=== PATIENT | female | born 1990 ===

== ENCOUNTER 2021-10-11 19:15 | Outpatient (CLI) | payer OTHER | END 2021-10-11 23:20 | disposition still patient (30) | LOC: TRG 19:15 → APU 22:42 → TRG 23:20 | PROVIDERS: ATTEND Obstetrics & Gynecology Gynecology | DX: Z34.93 Encounter for supervision of normal pregnancy, unspecified, third trimester (principal); Z3A.28 28 weeks gestation of pregnancy | CPT/HCPCS: 59025 ==